=== PATIENT | male | born 1935 | race Caucasian/White ===

== ENCOUNTER 2017-08-22 14:46 | Inpatient (IN) | payer OTHER ==
[~2017-08-22] VITALS: Ht 175.3 cm; Wt 86.2 kg
[~2017-08-22 14:46] MED LIST: HUMALOG100 UNIT/2 SC
--- NOTE | 2017-08-22 14:58 | ED AMS/SEIZURE/WEAK/DIZZY ---
History of Present Illness General Chief Complaint: General Adult Stated Complaint: GENERAL WEAKNESS Source: patient Exam Limitations: no limitations Vital Signs & Intake/Output Vital Signs & Intake/Output Vital Signs Date Time Temp Pulse Resp B/P B/P Pulse O2 O2 Flow FiO2 Mean Ox Delivery Rate 08/22 1655 100.1 95 20 97/48 98 Nasal 3.0L Cannula 08/22 1602 100.1 08/22 1530 100.0 08/22 1454 Nasal 3.0L Cannula 08/22 1453 0.0 98 20 108/53 96 Nasal 3.0L Cannula Allergies Coded Allergies: morphine (UNKNOWN 11/02/16) Uncoded Allergies: Allergy Other BEES Food Allergies NKA Med Allergies MORPHINE/GI, PERCOCET/RASH Reconcile Medications Baclofen 10 MG TABLET 1 TAB PO TID PAIN (Reported) Fluticasone/Salmeterol (Advair 250-50 Diskus) 250 MCG-50 MCG/DOSE BLST.W.DEV 1 PUF INH BID BREATHING PROBLEMS (Reported) Gabapentin 600 MG TABLET 1 TAB PO BID NEUROPATHY (Reported) Gabapentin 600 MG TABLET 0.5 TAB PO 1200 NEUROPATHY (Reported) Insulin Lispro (Humalog) 100 UNIT/ML VIAL 2 UNITS SC TID DIABETES (Reported) Insulin-Lantus (Lantus) 100 UNIT/ML VIAL 34 UNITS SC DAILY DIABETES (Reported ) Metoprolol Succinate 25 MG TAB 0.5 TAB PO DAILY HEART (Reported) Ramipril 5 MG CAPSULE 1 CAP PO DAILY HEART (Reported) Umeclidinium [place] (Incruse Ellipta) 62.5 MCG/ACTUATION BLST.W.DEV 1 PUFF PO QPM BREATHING PROBLEMS (Reported) Triage Note: PT BIBA FROM HOME TODAY D/T GENERALIZED WEAKNESS. PER EMS PT USUALLY AMBULATES AT HOME WITH A WALKER BUT WAS UNABLE TO AMBULATE INDEPENDENTLY TODAY. PT REPORTS INTEMITTENT PRODUCTIVE COUGH X1 WEEK WITH YELLOW SUPTUM. HX OF COPD AND WEARS 3 L NC AT BASELINE. Triage Nurses Notes Reviewed? yes Onset: Abrupt Duration: day(s): (2), constant, continues in ED, getting worse Timing: single episode today Injury Environment: home Severity: moderate, severe No Modifying Factors: none Modifying Factors: Improves With: movement. Associated Symptoms: cough HPI: 81-year-old male past medical history of COPD, diabetes, hypertension presents for evaluation of cough, fever and weakness. Patient states she's had a cough that is gradually gotten worse over the past 4 days. The cough is productive of yellow sputum. He states that today he felt so weak he was unable to get off the couch. Normally he is able to walk with a walker without any difficulty but today he felt too weak. He states that he is on oxygen 3 L nasal cannula is been using his inhalers but is still been coughing a lot. He also reports he feels more short of breath than usual. No chest pain. He had a low-grade fever today. Has not taken any Tylenol. He is a former smoker. No nausea vomiting abdominal pain urinary symptoms rashes or any other associated symptoms. (Kaz Jerez) Past History Travel History Traveled to [place] past 21 day No Medical History Any Pertinent Medical History? see below for history Cardiovascular: hypertension Respiratory: COPD Endocrine: diabetes Surgical History Surgical History: non-contributory Psychosocial History What is your primary language Congolese Tobacco Use: Quit >30 days ago Family History Hx Contributory? No (Kaz Jerez) Review of Systems Review of Systems Constitutional: Reports: fever, malaise, weakness. EENTM: Reports: no symptoms. Respiratory: Reports: see HPI, cough, short of breath, sputum production. Cardiovascular: Reports: no symptoms. GI: Reports: no symptoms. Genitourinary: Reports: no symptoms. Musculoskeletal: Reports: no symptoms. Skin: Reports: no symptoms. Neurological/Psychological: Reports: weakness. Hematologic/Endocrine: Reports: no symptoms. Immunologic/Allergic: Reports: no symptoms. All Other Systems: Reviewed and Negative (Kaz Jerez) Physical Exam Physical Exam General Appearance: well developed/nourished, no apparent distress, alert, awake Head: atraumatic, normal appearance Eyes: Bilateral: normal appearance, PERRL, EOMI. Ears, Nose, Throat: normal pharynx, normal ENT inspection, hearing grossly normal Neck: normal inspection, supple, full range of motion Respiratory: chest non-tender, no respiratory distress, quiet respiration, decreased breath sounds, rhonchi Cardiovascular: regular rate/rhythm, normal peripheral pulses Peripheral Pulses: 2+ radial (R), 2+ radial (L) Gastrointestinal: normal bowel sounds, soft, non-tender, no organomegaly Back: normal inspection, normal range of motion, no vertebral tenderness Extremities: normal range of motion Neurologic/Psych: no motor/sensory deficits, awake, alert, oriented x 3 Skin: intact, normal color, warm/dry Lymphatic: no anterior cervical kirsten Core Measures ACS in differential dx? No CVA/TIA Diagnosis No Sepsis Present: No Sepsis Focused Exam Completed? No (Isaias BAER,Kaz) Progress Differential Diagnosis: anemia, dehydration, electrolyte imbalance, migraine GARDNER, pneumonia, sepsis, UTI/pyelo, COPD exacerbation, CHF exacerbation, PE Plan of Care: Orders Procedure Date/time Status Heart Healthy Diet 08/23 B Active Patient Data 08/22 1750 Active ED Holding Orders 08/22 174 Active Admit to inpatient 08/22 174 Active Vital Signs 08/22 174 Active Code Status 08/22 174 Active Add-on Test (ER Only) 08/22 1731 Active CULTURE,URINE 08/22 1630 Active BLOOD CULTURE 08/22 1525 Active URINALYSIS 08/22 145 Complete TSH REFLEX 08/22 145 Complete TROPONIN LEVEL 08/22 145 Complete MAGNESIUM 08/22 1456 Complete LACTIC ACID 08/22 1456 Complete COMPREHENSIVE METABOLIC PANEL 08/22 1456 Complete CBC WITHOUT DIFFERENTIAL 08/22 1456 Complete B-TYPE NATRIURETIC PEP (BNP) 08/22 1456 Complete EKG 08/22 1452 Active Laboratory Tests 08/22/17 1630: Urine Color YEL, Urine Clarity CLDY H, Urine pH 6.0, Ur Specific [place] 1.020, Urine Protein 100 H, Urine Ketones NEG, Urine Nitrite NEG, Urine Bilirubin NEG, Urine Urobilinogen 0.2, Ur Leukocyte Esterase LARGE H, Ur Microscopic SEDIMENT EXAMINED, Urine RBC 1-3, Urine WBC PACKD H, Urine Bacteria PACKD H, Urine Hemoglobin SMALL H, Urine Glucose 500 H 08/22/17 1503: Anion Gap 9, Estimated GFR > 60, BUN/Creatinine Ratio 22.7, Glucose 294 H, Lactic Acid 1.3, Calcium 8.7, Magnesium 1.8, Total Bilirubin 0.6, AST 26, ALT 23 , Alkaline Phosphatase 75, Troponin I 0.01, Tjl-P-Ezrxbfqjmru Pept 1250 H, Total Protein 6.5, Albumin 3.4 L, Globulin 3.1, Albumin/Globulin Ratio 1.1, TSH &T3 &Free T4 Intrp 2.930, CBC w Diff MAN DIFF ORDERED, RBC 3.54 L, MCV 88.5, MCH 30.5, MCHC 34.4, RDW 13.8, MPV 8.7, Gran % 91.0 H, Lymphocytes % 4.2 L, Monocytes % 3.8, Eosinophils % 0.6, Basophils % 0.4, Absolute Granulocytes 13.7 H, Segmented Neutrophils 88 H, Band Neutrophils 5, Absolute Lymphocytes 0.6 L, Lymphocytes 2 L, Monocytes 5, Absolute Monocytes 0.6, Absolute Eosinophils 0.1, Absolute Basophils 0.1, Platelet Estimate ADEQUATE, Hypochromic-Microcytic 2+, Anisocytosis 1+ Microbiology 08/22 1630 URINE ROUT: Urine Culture - RECD 08/22 1610 BLOOD: Blood Culture - RECD 08/22 1550 BLOOD: Blood Culture - RECD Patient seen and evaluated. He is here with weakness cough congestion shortness of breath and fever. He is currently unable to ambulate. He normally walks with a walker but is feeling so weak he is unable to. He has a low-grade temp in the emergency department. Patient was unable to ambulate when attempted by myself. IV Tylenol IV fluids ordered. Labs chest x-ray EKG. Blood work shows a white blood cell count of 15,000 with left shift. Troponin is negative. Chest x-ray suggests bibasilar opacities when combined with the clinical history and labs is suspicious for pneumonia. Patient was started on ceftriaxone and Zithromax cultures obtained. Urine is also showing some signs of infection. Urine culture added. Patient denies any dysuria abdominal pain or back pain. He does have urinary frequency but reports that this is not unusual for him due to his history of BPH. Patient will require admission for further evaluation and treatment. He will need IV antibiotics, gentle IV hydration, serial labs, serial chest x-rays, pulmonology, DuoNeb's, physical therapy, case management Diagnostic Imaging: Viewed by Me: Radiology Read. Discussed w/RAD: Radiology Read. Radiology Impression: PATIENT: HAYDEN IBRAHIM PRESENT AGE: 81 PATIENT ACCOUNT NO: [id number] : 35 LOCATION: [facility] ORDERING PHYSICIAN: Kaz BAER SERVICE DATE: 08/22/17-4345 EXAM TYPE: RAD - XRY-PORTABLE CHEST XRAY EXAMINATION: CHEST 1 VIEW CLINICAL INFORMATION: Weakness. CHF. COMPARISON: 11/02/2016. TECHNIQUE: An AP view of the chest is provided. FINDINGS: The cardiac silhouette is enlarged, though stable. There is streaky bibasilar opacification. There are neither pleural effusions nor pneumothoraces. The osseous structures are stable. IMPRESSION: Mild streaky nonspecific bibasilar opacification. DICTATED BY: Mulugeta Abreu MD DATE/TIME DICTATED:08/22/171524 SEAT COVERER:SHARI DATE/TIME TRANSCRIBED:1524 CONFIDENTIAL, DO NOT COPY WITHOUT APPROPRIATE AUTHORIZATION. < Electronically signed in Other Vendor System> Initial ED EKG: nonspecific T-wave changes in the lateral leads (Kaz Jerez) Departure Departure Disposition: STILL A PATIENT Condition: Stable Clinical Impression Primary Impression: Pneumonia Qualifiers: Pneumonia type: due to unspecified organism Laterality: bilateral Lung location: unspecified part of lung Qualified Code: J18.9 - Pneumonia, unspecified organism Referrals: Unknown Departure Forms: Customer Survey General Discharge Information Admission Note Spoke With: Emiliana Hoffman MD Documentation of Exam: Documentation of any treatments & extenuating circumstances including Concerns Regarding Discharge (functional status, medication knowledge or non-compliance, living conditions, etc.) that warrant an admission rather than observation: [V antibiotics, gentle IV hydration, serial labs, serial chest x-rays, pulmonology, DuoNeb's, physical therapy, case management] (Kaz Jerez) PA/SENIOR SOLUTIONS ENGINEER Co-Sign Statement Statement: ED Attending supervision documentation- [X] I saw and evaluated the patient. I have also reviewed all the pertinent lab results and diagnostic results. I agree with the findings and the plan of care as documented in the PA's/SENIOR SOLUTIONS ENGINEER's documentation. [X] I have reviewed the ED Record and agree with the PA's/SENIOR SOLUTIONS ENGINEER's documentation. [] Additions or exceptions (if any) to the PAs/SENIOR SOLUTIONS ENGINEER's note and plan are summarized below: [Patient to be admitted for COPD exacerbation, he is febrile with leukocytosis. He'll need IV antibiotics, IV steroids, nebulizers, pulmonary consultation] (Daniel SWIFT,Zurdo Mobley)
[2017-08-22 15:18] LABS: ABSOLUTE BASOPHIL COUNT 0.1 /CUMM (0.0-0.2); ABSOLUTE EOSINOPHIL COUNT 0.1 /CUMM (0.0-0.7); ABSOLUTE GRANULOCYTE CT 13.7 /CUMM (1.4-6.5); ABSOLUTE LYMPH COUNT 0.6 /CUMM (1.2-3.4); ABSOLUTE MONOCYTE COUNT 0.6 /CUMM (0.10-0.60); BASOPHIL % 0.4 % (0.0-2.0); EOSINOPHIL % 0.6 % (0-5); HEMATOCRIT 31.3 % (42-52); MEAN CORPUSCULAR HGB 30.5 PG (27.0-31.0); MEAN CORPUSCULAR HGB CONC 34.4 G/DL (33.0-37.0); MEAN CORPUSCULAR VOLUME 88.5 FL (80.0-94.0); MEAN PLATELET VOLUME 8.7 FL (7.4-10.4); PLATELET COUNT 323 /CUMM (130-400); RBC DISTRIBUTION WIDTH 13.8 % (11.5-14.5); RED BLOOD CELL CT 3.54 /CUMM (4.70-6.10); WHITE BLOOD CELL COUNT 15.1 /CUMM (4.8-10.8)
--- NOTE | 2017-08-22 15:32 | RADIOLOGY REPORT ---
EXAMINATION: CHEST 1 VIEW CLINICAL INFORMATION: Weakness. CHF. COMPARISON: 11/02/2016. TECHNIQUE: An AP view of the chest is provided. FINDINGS: The cardiac silhouette is enlarged, though stable. There is streaky bibasilar opacification. There are neither pleural effusions nor pneumothoraces. The osseous structures are stable. IMPRESSION: Mild streaky nonspecific bibasilar opacification.
[2017-08-22] MEDS ORDERED: ALTACE10 M2 PO (15:34)
[2017-08-22] MEDS ORDERED: LANTUS100 UNIT/1 SC (15:34)
[2017-08-22] MEDS ORDERED: METOPROLOL SUCC25 M1 PO (15:35)
[2017-08-22] MEDS ORDERED: BACLOFEN10 M1 PO (15:36)
[2017-08-22] MEDS ORDERED: ADVAIR 250-501 EACH INH (15:36)
[2017-08-22] MEDS ORDERED: GABAPENTIN600 M1 PO ×2 (15:36)
[2017-08-22] MEDS ORDERED: INCRUSE ELLI62.5 MCG PO (15:37)
--- NOTE | 2017-08-22 18:31 | History & Physical ---
Damion Ambriz 08/22/171826: General Information and HPI MD Statement: I have seen and personally examined HAYDEN HUSSEIN and documented this H&P. The patient is a 81 year old M who presented with a patient stated chief complaint of [weakness]. Source of Information: patient, family Exam Limitations: no limitations History of Present Illness: Mr. Alfred is a pleasant 81 year old male with a PMH of diabetes, complicated by neuropathy, HTN and COPD on 2.5L of home O2 who presents to the hospital with complaints of weakness. He notes that he fell back into his chair after getting up this morning, at which point his family decided he should come into the hospital. He is quite active at baseline in spite of his neuropathy. Additionally, he notes that over the last week he has had a productive cough for 1 week. He denies any fever, chills, n/v, diarrhea, constipation, pain. Overall, at the time of the interview he feels well. Vitals in the ER BP 108/53, HR 98, RR 20, Tmax 100.1, saturating 95% on 3 L. Labs as indicated below. His doctors are: Dr. Luis Enrique Correa Cardio Dr. Guzman Pulmonary Dr. Sesar Husain PCP/Endo Allergies/Medications Allergies: Coded Allergies: morphine (UNKNOWN 11/02/16) Uncoded Allergies: Allergy Other BEES Food Allergies NKA Med Allergies MORPHINE/GI, PERCOCET/RASH Home Med list Baclofen 10 MG TABLET 1 TAB PO TID PAIN (Reported) Fluticasone/Salmeterol (Advair 250-50 Diskus) 250 MCG-50 MCG/DOSE BLST.W.DEV 1 PUF INH BID BREATHING PROBLEMS (Reported) Gabapentin 600 MG TABLET 1 TAB PO 0800,1200 NEUROPATHY (Reported) Gabapentin 600 MG TABLET 0.5 TAB PO 2100 NEUROPATHY (Reported) Insulin Lispro (Humalog) 100 UNIT/ML VIAL 2 UNITS SC TID DIABETES (Reported) Insulin-Lantus (Lantus) 100 UNIT/ML VIAL 34 UNITS SC DAILY DIABETES (Reported ) Metoprolol Succinate 25 MG TAB 0.5 TAB PO DAILY HEART (Reported) Ramipril (Altace) 10 MG CAPSULE 1 CAP PO DAILY HTN (Reported) Umeclidinium [place] (Incruse Ellipta) 62.5 MCG/ACTUATION BLST.W.DEV 1 PUFF PO QPM BREATHING PROBLEMS (Reported) Compliance With Home Meds: GOOD Past History Travel History Traveled to [place] past 21 day No Medical History Cardiovascular: hypertension Respiratory: COPD Endocrine: diabetes Surgical History Surgical History: non-contributory Past Family/Social History Psychosocial History Where do you live? Home Who Do You Live With? spouse Services at Home: Home Health Aide Smoking Status: Former Smoker Functional Ability ADLs Independent: dressing, eating, toileting, bathing. Ambulation: independent Review of Systems Review of Systems Constitutional: Reports: see HPI. Exam & Diagnostic Data Last 24 Hrs of Vital Signs/I&O Vital Signs Date Time Temp Pulse Resp B/P B/P Pulse O2 O2 Flow FiO2 Mean Ox Delivery Rate 08/22 1655 100.1 95 20 97/48 98 Nasal 3.0L Cannula 08/22 1602 100.1 08/22 1530 100.0 08/22 1454 Nasal 3.0L Cannula 08/22 1453 0.0 98 20 108/53 96 Nasal 3.0L Cannula Intake & Output 08/22 1600 08/22 0800 08/22 0000 Intake Total 0 Output Total Balance 0 Intake, Oral 0 Patient 99.79 kg Weight Physical Exam General Appearance Alert, Oriented X3, Cooperative, No Acute Distress HEENT Atraumatic, EOMI Neck Supple, No JVD, No LAD Cardiovascular Regular Rate, Normal S1, Normal S2, No Murmurs, distant sounds. Lungs bilateral rhonchi at the bases noted. poor air entry Abdomen Normal Bowel Sounds, Soft, No Tenderness Extremities No Tenderness/Swelling, healed stage 1 ulcer on the right heel Sepsis Peripheral Pulse Location: Radial Sepsis Peripheral Pulse Exam: Normal Sepsis Cap Refill Exam: <2 Sec Last 24 Hrs of Labs/Willie: Laboratory Tests 08/22/17 1756: Lactic Acid Cancelled 08/22/17 1630: Urine Color YEL, Urine Clarity CLDY H, Urine pH 6.0, Ur Specific [place] 1.020, Urine Protein 100 H, Urine Ketones NEG, Urine Nitrite NEG, Urine Bilirubin NEG, Urine Urobilinogen 0.2, Ur Leukocyte Esterase LARGE H, Ur Microscopic SEDIMENT EXAMINED, Urine RBC 1-3, Urine WBC PACKD H, Urine Bacteria PACKD H, Urine Hemoglobin SMALL H, Urine Glucose 500 H 08/22/17 1503: Anion Gap 9, Estimated GFR > 60, BUN/Creatinine Ratio 22.7, Glucose 294 H, Lactic Acid 1.3, Calcium 8.7, Magnesium 1.8, Total Bilirubin 0.6, AST 26, ALT 23 , Alkaline Phosphatase 75, Troponin I 0.01, Nvu-E-Czquatmyixc Pept 1250 H, Total Protein 6.5, Albumin 3.4 L, Globulin 3.1, Albumin/Globulin Ratio 1.1, TSH &T3 &Free T4 Intrp 2.930, CBC w Diff MAN DIFF ORDERED, RBC 3.54 L, MCV 88.5, MCH 30.5, MCHC 34.4, RDW 13.8, MPV 8.7, Gran % 91.0 H, Lymphocytes % 4.2 L, Monocytes % 3.8, Eosinophils % 0.6, Basophils % 0.4, Absolute Granulocytes 13.7 H, Segmented Neutrophils 88 H, Band Neutrophils 5, Absolute Lymphocytes 0.6 L, Lymphocytes 2 L, Monocytes 5, Absolute Monocytes 0.6, Absolute Eosinophils 0.1, Absolute Basophils 0.1, Platelet Estimate ADEQUATE, Hypochromic-Microcytic 2+, Anisocytosis 1+ Microbiology 08/22 1630 URINE ROUT: Urine Culture - RECD 08/22 1610 BLOOD: Blood Culture - RECD 08/22 1550 BLOOD: Blood Culture - RECD Diagnostic Data EKG Results sinus tach with 1st AVB. P-mitrale noted. Poor r-wave progression. No significant ST-T changes CXR Results The cardiac silhouette is enlarged, though stable. There is streaky bibasilar opacification. There are neither pleural effusions nor pneumothoraces. The osseous structures are stable. IMPRESSION: Mild streaky nonspecific bibasilar opacification Assessment/Plan Assessment: Mr. Alfred is a pleasant 81 year old male with a PMH of diabetes, complicated by neuropathy, HTN and COPD on 2L of home O2 who presents to the hospital with complaints of productive cough x1 week and weakness. Productive cough and fatigue * In light of the patient's white count, chest x-ray findings and clinical picture, are concerning for CAP. * The patient received ceftriaxone and azithromycin in the emergency department. * His CURB 65 score is 2 (meets BUN and age criteria), putting him in the moderate risk group with a 30 day mortality risk of approximately 6.8%. * He also technically meets sepsis criteria (temperature greater than 100.4, heart rate greater than 90) with a suspected source]. * We will admit to inpatient for treatment of community-acquired pneumonia with intravenous antibiotics, ceftriaxone and azithromycin. Blood cultures have been drawn and sent. * LRCx with TRC/Nebs as well as Urinary strep and legionella Ag * We will also give Mucinex 600 mg twice daily for his productive cough. * O2 supplementation with a goal saturation greater than 92%, and Tylenol for fevers. * Additionally as he is febrile and his blood pressures are slightly soft, we will give him maintenance fluid of normal saline at 75 mL per hour Pyuria * The patient does have laboratory signs of a urinary tract infection with leukocyte esterase positive urine and packed white blood cells with bacteria. * He does not endorse any urinary symptoms, and I feel his clinical picture of fever and weakness is most likely secondary to pneumonia as opposed to a UTI * Either way, he will receive coverage for pneumonia which will also cover potential gram-negative urinary pathology such as Escherichia coli. Chronic medical problems including hypertension, diabetes with neuropathy * We will continue the patient's home medications as ordered. Hold antihypertensive medications tonight as his blood pressure is slightly soft. Full code Consistent carb 2 diet Pain pathway as ordered Lovenox for DVT prophylaxis As Ranked By This Provider Problem List: 1. Pneumonia Qualifiers Pneumonia type: due to unspecified organism Laterality: bilateral Lung location : unspecified part of lung Qualified Code: J18.9 - Pneumonia, unspecified organism Core Measures/Misc (12/09) Acute Coronary Syndrome ACS Diagnosis: No Congestive Heart Failure Congestive Heart Failure Diagnosis No Cerebrovascular Accident CVA/TIA Diagnosis: No VTE (View Protocol) VTE Risk Factors Acute Medical Illness No Mechanical VTE Prophylaxis d/t Early Ambulation No VTE Pharm Prophylaxis d/t NA PharmProphylax ordered Sepsis (View protocol) Sepsis Present: No If YES complete Sepsis Event Note If YES complete Sepsis Event Note Lalo Hatch MD 08/22/172036: Core Measures/Misc (12/09) Sepsis (View protocol) If YES complete Sepsis Event Note If YES complete Sepsis Event Note Attending MD Review Statement Attending Statement Attending MD Statement: examined this patient, discuss w/resident/PA/PHYSICAL EDUCATION SPECIALIST, agreed w/resident/PA/PHYSICAL EDUCATION SPECIALIST, reviewed EMR data (avail), discussed with nursing Attending Assessment/Plan: Mr. Hussein is a 81 y/o male with a history of COPD on 3 L of oxygen at home, insulin-dependent diabetes mellitus, hypertension, bladder cancer comes in with complaints of generalized weakness and difficulty ambulating. Denies any subjective fever chills at home, however found to be febrile low-grade in the ER , respiratory symptoms are not prominent. On examination blood pressure 108/53, heart rate of 98, respiratory to 20, temperature of 100.1 saturating 95% on 3 L of oxygen in no acute distress. Bilateral air entry decreased with occasional rales, no wheezing. Cardiovascular S1-S2 normal, no pedal edema. Chest X ray showed mild streaky nonspecific bibasilar opacification. Assessment 1. Leucocytosis with fever - DD includes Community acquired pneumonia vs UTI 2. Generalized weakness 3. Insulin dependent Diabetes Mellitus 4. Asymptomatic bacteriuria 5. COPD - stable 6. Hypertension - currently BP on the lower side Plan Admit to general medicine floor. Follow-up on urine and blood cultures. Continue with IV ceftriaxone 1 g daily and IV azithromycin. Obtain physical therapy evaluation Continue with home dose of insulin with carb controlled diet Q6 hrly Accuchecks for 1st 24 hours Continue with home inhalers Will hold home dose of Toprol XL and re-evaluate in AM DVT prophylaxis with Lovenox
[2017-08-22 22:13] VITALS: BP 110/48
[2017-08-23 06:13] VITALS: BP 122/57
--- NOTE | 2017-08-23 07:44 | PN- Housestaff ---
Arcadio SWIFT,Nehal 08/23/17 0744: Subjective Follow-up For: Dizziness Subjective: Patient was seen and examined. He continues to have cough with production of phlegm. He denies any coughing on eating. The patient states that at home he uses 2.5 L during sleep and 2.5-3 L on ambulation during the day. He denies any chest pain. Review of Systems Constitutional: Reports: no symptoms. Cardiovascular: Reports: no symptoms. Respiratory: Reports: cough, short of breath, sputum production. Gastrointestinal: Reports: no symptoms. Genitourinary: Reports: no symptoms. Musculoskeletal: Reports: no symptoms. Objective Last 24 Hrs of Vital Signs/I&O Vital Signs Date Time Temp Pulse Resp B/P B/P Pulse O2 O2 Flow FiO2 Mean Ox Delivery Rate 08/23 1442 98.7 79 20 100/48 96 Nasal 2.5L Cannula 08/23 0847 89 122/57 08/23 0845 89 122/57 08/23 0800 95 Nasal 2.5L Cannula 08/23 0613 98.3 89 20 122/57 95 06/ 0000 99 Nasal 2.5L Cannula 08/22 2213 98.2 81 18 110/48 99 Nasal 2.5L Cannula 08/22 1958 99 Non 2.5L ReBreather 08/22 1845 98.7 92 20 97/48 98 Nasal 2.0L Cannula 08/22 1655 100.1 95 20 97/48 98 Nasal 3.0L Cannula Intake & Output 08/23 1600 08/23 0800 06 0000 Intake Total 900 720 Output Total 550 275 100 Balance 350 445 -100 Intake, IV 250 600 Intake, Oral 650 120 Output, Urine 550 275 100 Patient 190 lb Weight Weight Reported by Patient Measurement Method Physical Exam General Appearance: Alert, Oriented X3, Cooperative, No Acute Distress Skin: No Rashes, No Breakdown, No Significant Lesion Neck: Supple, No JVD Cardiovascular: Regular Rate, Normal S1, Normal S2 Lungs: mild crackles Abdomen: Normal Bowel Sounds, Soft, No Tenderness Neurological: Normal Speech Current Medications: Current Medications Sig/Adolfo Start time Last Medication Dose Route Stop Time Status Admin Acetaminophen 325 MG Q6P PRN 08/22 2044 AC PO Acetaminophen 1,000 MG Q6P PRN 08/22 2044 AC IV 08/24 2043 Azithromycin 500 MG DAILY 08/23 899 AC 08/23 Sodium Chloride 250 ML IV 0846 Azithromycin 500 MG ONCE ONE 08/22 1600 DC 08/22 Sodium Chloride 250 ML IV 08/22 1659 1614 Baclofen 10 MG TID 08/22 2099 AC 08/23 PO 1324 Budesonide/ 2 PUF BID 08/22 2100 AC 08/23 Formoterol Fumarate INH 0849 Ceftriaxone Sodium 1,000 MG DAILY 08/23 09 AC 08/23 IV 0846 Enoxaparin Sodium 40 MG DAILY 08/22 183 AC 08/23 SC 0844 Gabapentin 600 MG 0800,1200 08/23 0800 AC 08/23 PO 1143 Gabapentin 300 MG 2100 08/22 2099 AC 08/22 PO 2238 Guaifenesin 600 MG Q12 08/22 2099 AC 08/23 PO 0845 Insulin Aspart 0 AT BEDTIME 08/23 2099 SC Insulin Aspart 0 TIDAC 08/23 08 AR SC Insulin Aspart 0 TIDAC 08/22 2146 AC 08/23 SC 1144 Insulin Detemir 34 UNITS DAILY 08/23 09 AR SC Insulin Detemir 34 UNITS DAILY 08/22 2200 AC 08/23 SC 0849 Lisinopril 10 MG DAILY 08/23 09 AC 08/23 PO 0845 Metoprolol Succinate 12.5 MG DAILY 08/23 09 AC 08/23 PO 0847 Patient Medication 1 ED ONE ONE 08/23 1545 AR Teaching ED 08/23 1546 Sodium Chloride 1,000 ML Q13H 08/22 1845 DC 08/22 IV 08/23 0744 2048 Sodium Chloride 1,000 ML BOLUS ONE 08/22 1530 DC 08/22 IV 08/22 1629 1530 Last 24 Hrs of Lab/Willie Results Last 24 Hrs of Labs/Mics: Laboratory Tests 08/23/17 0752: Anion Gap 9, Estimated GFR > 60, BUN/Creatinine Ratio 27.5 H, Hemoglobin A1c 8.5 H, CBC w Diff NO MAN DIFF REQ, RBC 3.23 L, MCV 89.1, MCH 30.6, MCHC 34.3, RDW 14.0, MPV 8.9, Gran % 77.0 H, Lymphocytes % 13.2 L, Monocytes % 7.3, Eosinophils % 2.2, Basophils % 0.3, Absolute Granulocytes 6.0, Absolute Lymphocytes 1.0 L, Absolute Monocytes 0.6, Absolute Eosinophils 0.2, Absolute Basophils 0 08/23/17 0010: Lactic Acid 1.4 08/22/17 1756: Lactic Acid Cancelled 08/22/17 1630: Urine Color YEL, Urine Clarity CLDY H, Urine pH 6.0, Ur Specific [place] 1.020, Urine Protein 100 H, Urine Ketones NEG, Urine Nitrite NEG, Urine Bilirubin NEG, Urine Urobilinogen 0.2, Ur Leukocyte Esterase LARGE H, Ur Microscopic SEDIMENT EXAMINED, Urine RBC 1-3, Urine WBC PACKD H, Urine Bacteria PACKD H, Urine Hemoglobin SMALL H, Urine Glucose 500 H Microbiology 08/23 2043 LOWER RESP: Respiratory Culture - CAN Cancelled: SPECIMEN NOT RECEIVED IN LABORATORY 08/23 2043 LOWER RESP: Gram Stain - CAN Cancelled: SPECIMEN NOT RECEIVED IN LABORATORY 08/22 1629 URINE ROUT: Legionella Antigen - COMP 08/22 1629 URINE ROUT: Streptococcus pneumoniae Antigen (M - COMP 08/22 1629 URINE ROUT: Urine Culture - RES Assessment/Plan Assessment: Mr. Alfred is a pleasant 81 year old male with a PMH of diabetes, complicated by neuropathy, HTN and COPD on 2.5 L of home oxygen at night and 2.5 -3 L oxygen during the day,who presents to the hospital with complaints of productive cough x1 week and weakness. Productive cough and fatigue * In light of the patient's white count, chest x-ray findings and clinical picture, are concerning for CAP. * The patient received ceftriaxone and azithromycin in the emergency department will continue these medications. WBC has decreased from 15.1-7.8 today. * His CURB 65 score is 2 (meets BUN and age criteria), putting him in the moderate risk group with a 30 day mortality risk of approximately 6.8%. * He also technically meets sepsis criteria (temperature greater than 100.4, heart rate greater than 90) with a suspected source]. * Follow up blood cultures * LRCx with TRC/Nebs as well as Urinary strep and legionella Ag are negative * Mucinex 600 mg twice daily for his productive cough. * O2 supplementation with a goal saturation greater than 92%, and Tylenol for fevers. * Additionally as he is febrile and his blood pressures are slightly soft, we will give him maintenance fluid of normal saline at 75 mL per hour Pyuria * The patient does have laboratory signs of a urinary tract infection with leukocyte esterase positive urine and packed white blood cells with bacteria. * He does not endorse any urinary symptoms, and I feel his clinical picture of fever and weakness is most likely secondary to pneumonia as opposed to a UTI * Either way, he will receive coverage for pneumonia which will also cover potential gram-negative urinary pathology such as Escherichia coli. Chronic medical problems including hypertension, diabetes with neuropathy * We will continue the patient's home medications as ordered. Hold antihypertensive medications tonight as his blood pressure is slightly soft. Full code Consistent carb 2 diet Pain pathway as ordered Lovenox for DVT prophylaxis Problem List: 1. Pneumonia Pain Ratin Pain Location: na Pain Goal: Remain pain free Pain Plan: na Tomorrow's Labs & Rationales: milena Hoffman MD,Emiliana 08/23/17 1437: Attending MD Review Statement Attending Statement Attending MD Statement: examined this patient, discuss w/resident/PA/NURSE CHARGE RN, agreed w/resident/PA/NURSE CHARGE RN, reviewed EMR data (avail), discussed with nursing, discussed with case mgmt, amended to note Attending Assessment/Plan: Patient seen and examined. No issues overnight reported by nursing staff. Remains afebrile and hemodynamically stable. Resting comfortably and not in any acute distress. Reports feeling better. Reports mild productive cough. Denies chest pain. On examination he has adequate entry bilaterally with no significant added sounds. No peripheral edema. Problems: 1. Community-acquired pneumonia 2. Insulin-dependent diabetes mellitus 3. COPD 4. Hypertension Plan: -Continue antibiotic therapy with azithromycin/Rocephin. -Follow-up sputum cultures. -Mobilize patient as tolerated. -Blood glucose levels are in the 300s. Continue his home insulin regimen with sliding scale coverage. If glucose levels to trending high consider increasing dose of his long-acting insulin. Check hemoglobin A1c level today and if his home dose of insulin is currently appropriate for the patient.
[2017-08-23 09:43] LABS: ABSOLUTE BASOPHIL COUNT 0 /CUMM (0.0-0.2); ABSOLUTE EOSINOPHIL COUNT 0.2 /CUMM (0.0-0.7); ABSOLUTE MONOCYTE COUNT 0.6 /CUMM (0.10-0.60); BASOPHIL % 0.3 % (0.0-2.0); EOSINOPHIL % 2.2 % (0-5); HEMATOCRIT 28.8 % (42-52); MEAN CORPUSCULAR HGB 30.6 PG (27.0-31.0); MEAN CORPUSCULAR HGB CONC 34.3 G/DL (33.0-37.0); MEAN CORPUSCULAR VOLUME 89.1 FL (80.0-94.0); MEAN PLATELET VOLUME 8.9 FL (7.4-10.4); PLATELET COUNT 249 /CUMM (130-400); RED BLOOD CELL CT 3.23 /CUMM (4.70-6.10); WHITE BLOOD CELL COUNT 7.8 /CUMM (4.8-10.8)
[2017-08-23] MEDS ORDERED: CEFUROXIME500 MG PO (14:00)
[2017-08-23] MEDS ORDERED: AZITHROMYCIN500 M3 PO (14:00)
--- NOTE | 2017-08-23 14:03 | Patient Discharge Instructions ---
Discharge Instructions General Discharge Information You were seen/treated for: pneumonia Special Instructions: Your dose of insulin has changed. Please start taking 20 units twice daily. Follow up with your doctor who manages your diabetes after discharge. Continue all your previous medications as directed. Diet Continue normal diet: Yes Activity Full Activity/No Limits: Yes Acute Coronary Syndrome Inclusion Criteria At DC or during hospital stay patient has or had the following: ACS DIAGNOSIS No Discharge Core Measures Meds if any: Prescribed or Continued at Discharge Meds if any: NOT Prescribed or Continued at Discharge Congestive Heart Failure Inclusion Criteria At DC or during hospital stay patient has or had the following: CHF DIAGNOSIS No Discharge Core Measures Meds if any: Prescribed or Continued at Discharge Meds if any: NOT Prescribed or Continued at Discharge Cerebrovascular accident Inclusion Criteria At DC or during hospital stay patient has or had the following: CVA/TIA Diagnosis No Discharge Core Measures Meds if any: Prescribed or Continued at Discharge Meds if any: NOT Prescribed or Continued at Discharge Venous thromboembolism Inclusion Criteria VTE Diagnosis No VTE Type NONE VTE Confirmed by (Test) NONE Discharge Core Measures - Per Current guidelines, there needs to be overlap - treatment for the first 5 days of Warfarin therapy. - If discharged on Warfarin prior to 5 days of - overlap therapy, the patient will need to be - assessed for post discharge needs including - *Post discharge parental anticoagulation - *Warfarin and/or parental anticoagulation education - *Follow up date to check INR post discharge At least 5 days overlap therapy as Inpatient No Meds if any: Prescribed or Continued at Discharge Note: Overlap Therapy is Warfarin and Anticoagulant Meds if any: NOT Prescribed or Continued at Discharge
--- NOTE | 2017-08-23 14:25 | PN- Student ---
Subjective Subjective: Patient is a pleasant 81 year old male with a PMHx of DM complicated by neuropathy, COPD, HTN, BPH, and bladder cancer. The bladder cancer is currently under control, with removal of neoplasms occuring once per year, most recently in Jan or Feb 2017. He presented to the ED yesterday because he could stand from the seated position, even with the help of his and granddaugter. He was able to move from his bed to the couch in the morning without difficulty. Previous to one day ago, he moved about the house freely with the aid of a walker or cane. The patient reported having a cough productive of yellow/white mucous for the past 6 days, with no associated pain. The patient reports taking liquid nectar for as long as he can remember, maybe about 20 years. His daughter and son-in-law have been very helpful, accurate historians. The daughter is concerned that his skin appears very "thin" and said he always has "blood spots on his arms". This morning the patient reported that he slept well overnight and didn't cough overnight, but he said he's nervous about not being able to do today's physical therapy. Patient's son-in-law Lucio made note that last time the patient was treated for pneumonia, he remained in rehabilition for 7 weeks and believes that his slow recovery was due to difficulty managing blood glucose levels. He is concerned that because there isn't sugar free liquid nectar juice in the hospital, that this may be affecting his sugar levels and thus would like us to DC use. The patient has his own thickener that he can add to water. Objective Objective: Vital Signs Date Time Temp Pulse Resp B/P B/P Pulse O2 O2 Flow FiO2 Mean Ox Delivery Rate 08/23 0847 89 122/57 08/23 0845 89 122/57 08/23 0800 95 Nasal 2.5L Cannula 08/23 0613 98.3 89 20 122/57 95 08/23 0000 99 Nasal 2.5L Cannula 08/22 2212 98.2 81 18 110/48 99 Nasal 2.5L Cannula 08/22 1957 99 Non 2.5L ReBreather 08/22 1845 98.7 92 20 97/48 98 Nasal 2.0L Cannula 08/22 1655 100.1 95 20 97/48 98 Nasal 3.0L Cannula 08/22 1602 100.1 05/31 1530 100.0 08/22 1454 Nasal 3.0L Cannula 08/22 1453 0.0 98 20 108/53 96 Nasal 3.0L Cannula Physical Exam: General: well-appearing, alert and pleasant Skin: skin appears thin with multiple ecchymoses on arms bilaterally, healing stage 1 ulcer on bottom of R heel HEENT: nomocephalic, atraumatic, PERRLA, gross hearing intact, normal pink mucosa, no teeth present, symmetric elevation of palate, tongue midline Neck: supple, no lymphadenopathy Cardiac: quiet S1, S2, no MRG appreciated Pulmonary: thorax symmetric, no use of accessory muscles, no tenderness on palpation, bibasilar rales MSK: no edema Neuro: AO x 3, 5/5 strength in hip flexion bilaterally Intake & Output 08/23 1600 08/23 0800 08/23 0000 Intake Total 720 Output Total 275 100 Balance 445 -100 Intake, IV 600 Intake, Oral 120 Output, Urine 275 100 Patient 190 lb Weight Weight Reported by Patient Measurement Method Laboratory Tests 08/23 08/23 08/22 0752 0010 1756 Chemistry Sodium (137 - 145 mmol/L) 141 Potassium (3.5 - 5.1 mmol/L) 4.4 Chloride (98 - 107 mmol/L) 101 Carbon Dioxide (22 - 30 mmol/L) 30 Anion Gap (5 - 16) 9 BUN (9 - 20 mg/dL) 22 H Creatinine (0.7 - 1.2 mg/dL) 0.8 Estimated GFR (>60 ml/min) > 60 BUN/Creatinine Ratio (7 - 25 %) 27.5 H Lactic Acid (0.7 - 2.1 mmol/L) 1.4 Cancelled Hematology CBC w Diff NO MAN DIFF REQ WBC (4.8 - 10.8 /CUMM) 7.8 RBC (4.70 - 6.10 /CUMM) 3.23 L Hgb (14.0 - 18.0 G/DL) 9.9 L Hct (42 - 52 %) 28.8 L MCV (80.0 - 94.0 FL) 89.1 MCH (27.0 - 31.0 PG) 30.6 MCHC (33.0 - 37.0 G/DL) 34.3 RDW (11.5 - 14.5 %) 14.0 Plt Count (130 - 400 /CUMM) 249 MPV (7.4 - 10.4 FL) 8.9 Gran % (42.2 - 75.2 %) 77.0 H Lymphocytes % (20.5 - 51.1 %) 13.2 L Monocytes % (1.7 - 9.3 %) 7.3 Eosinophils % (0 - 5 %) 2.2 Basophils % (0.0 - 2.0 %) 0.3 Absolute Granulocytes (1.4 - 6.5 /CUMM) 6.0 Absolute Lymphocytes (1.2 - 3.4 /CUMM) 1.0 L Absolute Monocytes (0.10 - 0.60 /CUMM) 0.6 Absolute Eosinophils (0.0 - 0.7 /CUMM) 0.2 Absolute Basophils (0.0 - 0.2 /CUMM) 0 08/22 1630 Urines Urine Color (YEL,AMB,STR) YEL Urine Clarity (CLEAR) CLDY H Urine pH (5.0 - 8.0) 6.0 Ur Specific [place] (1.001 - 1.035) 1.020 Urine Protein (NEG,<30 MG/DL) 100 H Urine Ketones (NEG) NEG Urine Nitrite (NEG) NEG Urine Bilirubin (NEG) NEG Urine Urobilinogen (0.1 - 1.0 EU/dl) 0.2 Ur Leukocyte Esterase (NEG) LARGE H Ur Microscopic SEDIMENT EXAMINED Urine RBC (0 - 5 /HPF) 1-3 Urine WBC (0 - 2 /HPF) PACKD H Urine Bacteria (NEG/NONE) PACKD H Urine Hemoglobin (NEG) SMALL H Urine Glucose (N MG/DL) 500 H 08/22 1503 Chemistry Sodium (137 - 145 mmol/L) 138 Potassium (3.5 - 5.1 mmol/L) 4.6 Chloride (98 - 107 mmol/L) 97 L Carbon Dioxide (22 - 30 mmol/L) 32 H Anion Gap (5 - 16) 9 BUN (9 - 20 mg/dL) 25 H Creatinine (0.7 - 1.2 mg/dL) 1.1 Estimated GFR (>60 ml/min) > 60 BUN/Creatinine Ratio (7 - 25 %) 22.7 Glucose (65 - 99 mg/dL) 294 H Lactic Acid (0.7 - 2.1 mmol/L) 1.3 Calcium (8.4 - 10.2 mg/dL) 8.7 Magnesium (1.6 - 2.3 mg/dL) 1.8 Total Bilirubin (0.2 - 1.3 mg/dL) 0.6 AST (17 - 59 U/L) 26 ALT (21 - 72 U/L) 23 Alkaline Phosphatase (< 127 U/L) 75 Troponin I (<0.11 ng/ml) 0.01 Ozg-W-Ogzstccowuh Pept (<125 pg/mL) 1250 H Total Protein (6.3 - 8.2 g/dL) 6.5 Albumin (3.5 - 5.0 g/dL) 3.4 L Globulin (1.9 - 4.2 gm/dL) 3.1 Albumin/Globulin Ratio (1.1 - 2.2 %) 1.1 TSH &T3 &Free T4 Intrp (0.27 - 4.20 uIU/mL) 2.930 Hematology CBC w Diff MAN DIFF ORDERED WBC (4.8 - 10.8 /CUMM) 15.1 H RBC (4.70 - 6.10 /CUMM) 3.54 L Hgb (14.0 - 18.0 G/DL) 10.8 L Hct (42 - 52 %) 31.3 L MCV (80.0 - 94.0 FL) 88.5 MCH (27.0 - 31.0 PG) 30.5 MCHC (33.0 - 37.0 G/DL) 34.4 RDW (11.5 - 14.5 %) 13.8 Plt Count (130 - 400 /CUMM) 323 MPV (7.4 - 10.4 FL) 8.7 Gran % (42.2 - 75.2 %) 91.0 H Lymphocytes % (20.5 - 51.1 %) 4.2 L Monocytes % (1.7 - 9.3 %) 3.8 Eosinophils % (0 - 5 %) 0.6 Basophils % (0.0 - 2.0 %) 0.4 Absolute Granulocytes (1.4 - 6.5 /CUMM) 13.7 H Segmented Neutrophils (42.2 - 75.2 %) 88 H Band Neutrophils (0.0 - 5.0 %) 5 Absolute Lymphocytes (1.2 - 3.4 /CUMM) 0.6 L Lymphocytes (20.5 - 51.1 %) 2 L Monocytes (1.7 - 9.3 %) 5 Absolute Monocytes (0.10 - 0.60 /CUMM) 0.6 Absolute Eosinophils (0.0 - 0.7 /CUMM) 0.1 Absolute Basophils (0.0 - 0.2 /CUMM) 0.1 Platelet Estimate (ADEQUATE) ADEQUATE Hypochromic-Microcytic 2+ Anisocytosis 1+ CXR: streaky, bibasilar opacification Current Medications Sig/Adolfo Start time Last Medication Dose Route Stop Time Status Admin Acetaminophen 325 MG Q6P PRN 08/22 2044 AC PO Acetaminophen 1,000 MG Q6P PRN 08/22 2044 AC IV 08/23 204 Acetaminophen 0 .STK-MED ONE 08/22 1533 DC IV Acetaminophen 1,000 MG ONCE ONE 08/22 1530 DC 08/22 N/A 1 UNIT IV 08/22 1544 1530 Azithromycin 500 MG DAILY 08/23 09 AC 08/23 Sodium Chloride 250 ML IV 0846 Azithromycin 500 MG ONCE ONE 08/22 1600 DC 08/22 Sodium Chloride 250 ML IV 08/22 1659 1614 Baclofen 10 MG TID 08/22 2100 AC 08/23 PO 1324 Budesonide/ 2 PUF BID 08/22 2100 AC 08/23 Formoterol Fumarate INH 0849 Ceftriaxone Sodium 1,000 MG DAILY 08/23 09 AC 08/23 IV 0846 Ceftriaxone Sodium 0 .STK-MED ONE 08/22 1601 DC .ROUTE Ceftriaxone Sodium 1,000 MG ONCE ONE 08/22 1600 DC 08/22 IV 08/22 1601 1614 Enoxaparin Sodium 40 MG DAILY 08/22 1838 AC 08/23 SC 0844 Gabapentin 600 MG 0800,1200 08/23 0800 AC 08/23 PO 1143 Gabapentin 300 MG 08/22 AC 08/22 PO 2238 Guaifenesin 600 MG Q12 08/22 2099 AC 08/23 PO 0845 Insulin Aspart 0 AT BEDTIME 08/23 2099 AC SC Insulin Aspart 0 TIDAC 08/23 08 DC SC Insulin Aspart 0 TIDAC 08/22 2146 AC 08/23 SC 1144 Insulin Detemir 34 UNITS DAILY 08/23 09 DC SC Insulin Detemir 34 UNITS DAILY 08/22 220 AC 08/23 SC 0849 Lisinopril 10 MG DAILY 08/23 0900 AC 08/23 PO 0845 Metoprolol Succinate 12.5 MG DAILY 08/23 0900 AC 08/23 PO 0847 Sodium Chloride 1,000 ML Q13H 08/22 1845 DC 08/22 IV 08/23 0744 2048 Sodium Chloride 1,000 ML BOLUS ONE 08/22 1530 DC 08/22 IV 08/22 1629 1530 Results Results: Laboratory Tests 08/23/17 0752: Anion Gap 9, Estimated GFR > 60, BUN/Creatinine Ratio 27.5 H, CBC w Diff NO MAN DIFF REQ, RBC 3.23 L, MCV 89.1, MCH 30.6, MCHC 34.3, RDW 14.0, MPV 8.9, Gran % 77.0 H, Lymphocytes % 13.2 L, Monocytes % 7.3, Eosinophils % 2.2, Basophils % 0.3, Absolute Granulocytes 6.0, Absolute Lymphocytes 1.0 L, Absolute Monocytes 0.6, Absolute Eosinophils 0.2, Absolute Basophils 0 08/23/17 0010: Lactic Acid 1.4 08/22/17 1756: Lactic Acid Cancelled 08/22/17 1630: Urine Color YEL, Urine Clarity CLDY H, Urine pH 6.0, Ur Specific [place] 1.020, Urine Protein 100 H, Urine Ketones NEG, Urine Nitrite NEG, Urine Bilirubin NEG, Urine Urobilinogen 0.2, Ur Leukocyte Esterase LARGE H, Ur Microscopic SEDIMENT EXAMINED, Urine RBC 1-3, Urine WBC PACKD H, Urine Bacteria PACKD H, Urine Hemoglobin SMALL H, Urine Glucose 500 H 08/22/17 1503: Anion Gap 9, Estimated GFR > 60, BUN/Creatinine Ratio 22.7, Glucose 294 H, Lactic Acid 1.3, Calcium 8.7, Magnesium 1.8, Total Bilirubin 0.6, AST 26, ALT 23 , Alkaline Phosphatase 75, Troponin I 0.01, Nxu-I-Ywtziyjdawl Pept 1250 H, Total Protein 6.5, Albumin 3.4 L, Globulin 3.1, Albumin/Globulin Ratio 1.1, TSH &T3 &Free T4 Intrp 2.930, CBC w Diff MAN DIFF ORDERED, RBC 3.54 L, MCV 88.5, MCH 30.5, MCHC 34.4, RDW 13.8, MPV 8.7, Gran % 91.0 H, Lymphocytes % 4.2 L, Monocytes % 3.8, Eosinophils % 0.6, Basophils % 0.4, Absolute Granulocytes 13.7 H, Segmented Neutrophils 88 H, Band Neutrophils 5, Absolute Lymphocytes 0.6 L, Lymphocytes 2 L, Monocytes 5, Absolute Monocytes 0.6, Absolute Eosinophils 0.1, Absolute Basophils 0.1, Platelet Estimate ADEQUATE, Hypochromic-Microcytic 2+, Anisocytosis 1+ Microbiology 08/23 2043 LOWER RESP: Respiratory Culture - COLB 08/23 2043 LOWER RESP: Gram Stain - COLB 08/22 2036 URINE ROUT: Legionella Antigen - COLB 08/22 2036 URINE ROUT: Streptococcus pneumoniae Antigen (M - COLB 08/22 163 URINE ROUT: Urine Culture - RES 08/22 161 BLOOD: Blood Culture - RES 08/22 1550 BLOOD: Blood Culture - RES Assessment/Plan Assessment: Patient is 81 year old male with PMHx of diabetic neuropathy and COPD with 6 days of productive cough and elevated WBC count and bibasilar opacifications on CXR supporting the diagnosis of pneumonia, though it could be a COPD exacerbation. Patient's UA showed pyuria, bacteria, and glucose in the urine, suggestive of a UTI. Plan: Patient is currently receiving 1,000mg ceftriaxone and 500mg azythromycin daily for empiric treatment of pneuomia, which should also treat the UTI. We are awaiting blood and sputum cultures to make sure we are treating appropriately. The patient's last blood glucose measurement was yesterday, measuring 294 so I recommend that we obtain another measurement today to see if his levels are appropriate.
[2017-08-23 14:42] VITALS: BP 100/48
[2017-08-23 22:00] VITALS: BP 126/56
--- NOTE | 2017-08-24 08:12 | PN- Housestaff ---
Antonio SWIFT,Robyn 08/24/17 0811: Subjective Follow-up For: CAP Subjective: Seen and examined. feels improvement in symptoms. However he does not want to be discharged from Review of Systems Constitutional: Reports: see HPI. Objective Last 24 Hrs of Vital Signs/I&O Vital Signs Date Time Temp Pulse Resp B/P B/P Pulse O2 O2 Flow FiO2 Mean Ox Delivery Rate 08/24 1836 Nasal 2.5L Cannula 08/24 1600 Nasal 2.5L Cannula 08/24 1544 98.9 89 20 124/52 97 Room Air 08/24 0819 88 126/56 08/24 0818 88 126/56 08/24 0000 Nasal 2.5L Cannula 08/23 2200 98.9 88 20 126/56 98 Nasal 2.5L Cannula Intake & Output 08/24 1600 08/24 0800 08/24 0000 Intake Total 2100 480 Output Total 300 350 100 Balance 1800 130 -100 Intake, IV 300 0 Intake, Oral 1800 480 Number 0 1 Bowel Movements Output, Urine 300 350 100 Physical Exam General Appearance: Alert, Oriented X3 Cardiovascular: Normal S1, Normal S2 Lungs: mild crackels Abdomen: Soft, No Tenderness Current Medications: Current Medications Sig/Adolfo Start time Last Medication Dose Route Stop Time Status Admin Acetaminophen 325 MG Q6P PRN 08/22 2044 AC PO Acetaminophen 1,000 MG Q6P PRN 08/22 2044 DC IV 08/23 204 Albuterol Sulfate 3 ML Q4P PRN 08/24 184 AC INH Azithromycin 500 MG DAILY 08/23 899 AC 08/24 Sodium Chloride 250 ML IV 0820 Baclofen 10 MG TID 08/22 2099 AC 08/24 PO 1223 Budesonide/ 2 PUF BID 08/22 2099 AC 08/24 Formoterol Fumarate INH 0820 Ceftriaxone Sodium 1,000 MG DAILY 08/23 09 AC 08/24 IV 0818 Enoxaparin Sodium 40 MG DAILY 08/22 183 AC 08/24 SC 0819 Gabapentin 600 MG 0800,1200 08/23 08 AC 08/24 PO 122 Gabapentin 300 MG 08/22 AC 08/23 PO 2051 Guaifenesin 600 MG Q12 08/22 2099 AC 08/24 PO 0818 Insulin Aspart 0 AT BEDTIME 08/23 2099 AC 08/23 SC 2051 Insulin Aspart 0 TIDAC 08/22 2145 08/24 SC 1702 Insulin Detemir 34 UNITS DAILY 08/22 2200 08/24 SC 0818 Lisinopril 10 MG DAILY 08/23 0900 AC 08/24 PO 0818 Metoprolol Succinate 12.5 MG DAILY 08/23 0900 08/24 PO 0819 Assessment/Plan Assessment: Mr. Alfred is a pleasant 81 year old male with a PMH of diabetes, complicated by neuropathy, HTN and COPD on 2.5 L of home oxygen at night and 2.5 -3 L oxygen during the day,who presents to the hospital with complaints of productive cough x1 week and weakness. Productive cough and fatigue In light of the patient's white count, chest x-ray findings and clinical picture, are concerning for CAP -Ceftriaxone and azithromycin -TRC nebs -Mucinex -Oxygen supplementation Pyuria no urinary symptoms likely symptomatic bacteriuria white count is coming from the [facility] community-acquired pneumonia Chronic medical problems including hypertension, diabetes with neuropathy * We will continue the patient's home medications as ordered. Hold antihypertensive medications tonight as his blood pressure is slightly soft. Full code Consistent carb 2 diet Pain pathway as ordered Lovenox for DVT prophylaxis Problem List: 1. Pneumonia Pain Ratin Pain Location: n/a Pain Goal: Pain 4 or less Pain Plan: prn Tomorrow's Labs & Rationales: none Mario Brady MD 08/24/17 1003: Attending MD Review Statement Attending Statement Attending Statement: examined this patient, discuss w/resident/PA/OPERATIONS WELDER, agreed w/resident/PA/OPERATIONS WELDER, discussed with family, reviewed EMR data (avail), discussed with nursing, discussed with case mgmt, reviewed images, amended to note Attending Assessment/Plan: Mario Siddiqi M.D. have examined this patient, reviewed available EMR data, personally reviewed images, discussed with resident/PA/OPERATIONS WELDER, discussed management plan with housestaff and nursing staff, discussed managment plan all of healthcare providers, discussed management plan with patient and/or family, agreed with resident/PA/OPERATIONS WELDER. The past history and parts of the chart have been autopopulated. Impression 81 year old man * CAP * DM - insulin dependent * COPD at baseline * HTN Plan -currently on ceftriaxone and zithromax -TRC evaluation -monitor glucose -upon dc to f/u with Dr. Guzman (primary bearing ring assembler) DVT prophylaxis at all times
[2017-08-24 15:44] VITALS: BP 124/52
[2017-08-24 21:39] VITALS: BP 120/50
[2017-08-25 06:55] VITALS: BP 136/52
--- NOTE | 2017-08-25 08:41 | PN- Housestaff ---
Antonio SWIFT,Robyn 08/25/17 0841: Subjective Follow-up For: Community-acquired pneumonia Subjective: The patient has been seen and examined resting comfortably. He reports improvement in respiratory symptoms. Denies fevers chills nausea vomiting diarrhea Review of Systems Constitutional: Reports: see HPI. Objective Last 24 Hrs of Vital Signs/I&O Vital Signs Date Time Temp Pulse Resp B/P B/P Pulse O2 O2 Flow FiO2 Mean Ox Delivery Rate 08/25 0835 136/52 08/25 0835 136/52 08/25 0800 Nasal 2.5L Cannula 08/25 0655 98.5 74 20 136/52 97 / 0000 Nasal 2.5L Cannula 08/24 2139 98.5 77 19 120/50 96 Nasal 2.5L Cannula 08/24 1836 Nasal 2.5L Cannula 08/24 1600 Nasal 2.5L Cannula 08/24 1544 98.9 89 20 124/52 97 Room Air Intake & Output 08/25 1600 08/25 0800 08/25 0000 Intake Total 490 Output Total 550 400 Balance -60 -400 Intake, IV 10 Intake, Oral 480 Number 0 Bowel Movements Output, Urine 550 400 Patient 190 lb Weight Physical Exam General Appearance: Alert, Oriented X3, Cooperative Cardiovascular: Normal S1, Normal S2 Lungs: Clear to Auscultation Abdomen: Normal Bowel Sounds Neurological: Normal Speech Current Medications: Current Medications Sig/Adolfo Start time Last Medication Dose Route Stop Time Status Admin Acetaminophen 325 MG Q6P PRN 08/22 204 AC PO Albuterol Sulfate 3 ML Q4P PRN 08/24 1845 AC INH Azithromycin 500 MG DAILY 08/23 899 AC 08/25 Sodium Chloride 250 ML IV 0834 Baclofen 10 MG TID 08/22 2099 AC 08/25 PO 0834 Budesonide/ 2 PUF BID 08/22 2099 AC 08/25 Formoterol Fumarate INH 0835 Ceftriaxone Sodium 1,000 MG DAILY 08/23 899 AC 08/25 IV 0834 Enoxaparin Sodium 40 MG DAILY 08/22 183 AC 08/25 SC 0834 Gabapentin 600 MG 0800,1200 08/23 08 AC 08/25 PO 0834 Gabapentin 300 MG 08/22 AC 08/24 PO 2210 Guaifenesin 600 MG Q12 08/22 2099 AC 08/25 PO 0834 Insulin Aspart 0 AT BEDTIME 08/23 2099 AC 08/23 SC 2052 Insulin Aspart 0 TIDAC 08/22 2146 AC 08/24 TN 1702 Insulin Detemir 34 UNITS DAILY 08/22 2200 AC 08/25 SC 0849 Lisinopril 10 MG DAILY 08/23 0900 AC 08/25 PO 0835 Metoprolol Succinate 12.5 MG DAILY 08/23 0900 AC 08/25 PO 0835 Assessment/Plan Assessment: Mr. Alfred is a pleasant 81 year old male with a PMH of diabetes, complicated by neuropathy, HTN and COPD on 2.5 L of home oxygen at night and 2.5 -3 L oxygen during the day,who presents to the hospital with complaints of productive cough x1 week and weakness. #Productive cough and fatigue In light of the patient's white count, chest x-ray findings and clinical picture, are concerning for CAP -Ceftriaxone and azithromycin -TRC nebs -Mucinex -Oxygen supplementation -He will complete 5 days of antibiotic therapy tomorrow and can be discharged home with follow-up with his pediatric geneticist. -No wheezing does not appear to be in COPD exacerbation. We'll hold off steroids #Near Fall and deconditioning -Patient needs to be evaluated by PT for safe discharge planning. Patient has not been walked by nurse's and is being deemed a fall risk. #Pyuria no urinary symptoms likely asymptomatic bacteriuria white count is coming from the community-acquired pneumonia #Chronic medical problems including hypertension, diabetes with neuropathy We will continue the patient's home medications as ordered. Hold antihypertensive medications tonight as his blood pressure is slightly soft. Full code/Consistent carb 2 diet Problem List: 1. Pneumonia Pain Ratin Pain Location: none Pain Goal: Pain 4 or less Pain Plan: prn Tomorrow's Labs & Rationales: none Mario Brady MD 08/25/17 0953: Attending MD Review Statement Attending Statement Attending MD Statement: examined this patient, discuss w/resident/PA/MARIONETTE PERFORMER, agreed w/resident/PA/MARIONETTE PERFORMER, discussed with family, reviewed EMR data (avail), discussed with nursing, discussed with case mgmt, reviewed images, amended to note Attending Assessment/Plan: Mario Siddiqi M.D. have examined this patient, reviewed available EMR data, personally reviewed images, discussed with resident/PA/MARIONETTE PERFORMER, discussed management plan with housestaff and nursing staff, discussed managment plan all of healthcare providers, discussed management plan with patient and/or family, agreed with resident/PA/MARIONETTE PERFORMER. The past history and parts of the chart have been autopopulated. Impression 81 year old man * CAP * DM - insulin dependent * COPD at baseline * HTN Plan -currently on ceftriaxone and zithromax - continue -obtain sputum culture if feasible -TRC -feelng better, no need for steroids at this time -monitor glucose -upon dc to f/u with Dr. Guzman (primary pediatric geneticist) DVT prophylaxis at all times
[2017-08-25 14:58] VITALS: BP 114/48
[2017-08-25 22:00] VITALS: BP 129/50
[2017-08-26 06:21] VITALS: BP 132/48
--- NOTE | 2017-08-26 07:27 | PN- Housestaff ---
Arcadio SWIFT,Nehal 08/26/17 0727: Subjective Follow-up For: CAP Subjective: patient notes that his breathing is better. does not complain of cough. he notes that he has not gotten up at all since 4 days ago, before he was in the hospital. the back of his heels hurt from laying in bed too long. patient had high blood sugar over 400 overnight. Review of Systems Constitutional: Reports: weakness. EENTM: Reports: no symptoms. Cardiovascular: Reports: no symptoms. Respiratory: Reports: no symptoms. Gastrointestinal: Reports: no symptoms. Genitourinary: Reports: no symptoms. Musculoskeletal: Reports: no symptoms. Skin: Reports: no symptoms. Neurological/Psychological: Reports: no symptoms. Objective Last 24 Hrs of Vital Signs/I&O Vital Signs Date Time Temp Pulse Resp B/P B/P Pulse O2 O2 Flow FiO2 Mean Ox Delivery Rate 08/26 1730 98.8 76 20 132/54 08/26 1600 9 Nasal 2.5L Cannula 08/26 1444 98.8 76 20 94 Nasal 3.0L Cannula 08/26 1321 95 Nasal 2.5L Cannula 08/26 1126 Nasal 2.5L Cannula 08/26 0915 72 132/54 /04 0914 72 132/54 08/26 0800 94 Nasal 2.5L Cannula 08/26 0621 98.5 76 20 132/48 97 08/26 0000 94 Nasal 2.5L Cannula 08/25 2200 98.1 78 20 129/50 96 Nasal 2.5L Cannula Intake & Output 08/26 1600 /04 0800 08/26 0000 Intake Total 720 120 Output Total 550 150 400 Balance 170 -30 -400 Intake, Oral 720 120 Output, Urine 550 150 400 Physical Exam General Appearance: Alert, Oriented X3, Cooperative, No Acute Distress Skin: No Rashes, No Breakdown, No Significant Lesion Skin Temp/Moisture Exam: Warm/Dry Cardiovascular: Regular Rate, Normal S1, Normal S2, No Murmurs Lungs: Clear to Auscultation Abdomen: Normal Bowel Sounds, Soft, No Tenderness, No Hepatospenomegaly Neurological: Normal Speech Extremities: No Clubbing, No Cyanosis, No Edema Vascular: Normal Pulses, Pulses Symmetrical Current Medications: Current Medications Sig/Adolfo Start time Last Medication Dose Route Stop Time Status Admin Acetaminophen 325 MG Q6P PRN 05/31 2045 DCD PO Albuterol Sulfate 3 ML Q4P PRN 08/24 1845 DCD INH Azithromycin 500 MG DAILY 08/23 09 DCD 08/26 Sodium Chloride 250 ML IV 0913 Baclofen 10 MG TID 08/22 2100 DCD 08/26 PO 1427 Bisacodyl 10 MG DAILY NEEDED PRN 08/26 1130 DCD NH Budesonide/ 2 PUF BID 08/22 2100 DCD 08/26 Formoterol Fumarate INH 0913 Ceftriaxone Sodium 1,000 MG DAILY 08/23 09 DCD 08/26 IV 0913 Docusate Sodium 100 MG DAILY 08/26 1126 DCD 08/26 PO 1427 Enoxaparin Sodium 40 MG DAILY 08/22 1838 DCD 08/26 SC 0910 Gabapentin 600 MG 0800,1200 08/23 0800 DCD 08/26 PO 1238 Gabapentin 300 MG 2100 08/22 2100 DCD 08/25 PO 2126 Guaifenesin 600 MG Q12 08/22 2100 DCD 08/26 PO 0911 Insulin Aspart 0 TIDAC 08/25 1200 DCD 08/26 SC 1647 Insulin Aspart 0 AT BEDTIME 08/23 2100 DCD 08/23 SC 2052 Insulin Detemir 20 UNITS BID 08/26 2100 DCD SC Insulin Detemir 34 UNITS DAILY 08/22 2200 DC 08/26 SC 0911 Lisinopril 10 MG DAILY 08/23 0900 DCD 08/26 PO 0914 Metoprolol Succinate 12.5 MG DAILY 08/23 0900 DCD 08/26 PO 0915 Polyethylene Glycol 17 GM DAILY 08/26 1126 DCD PO Senna/Docusate Sodium 2 TAB DAILY 08/26 1125 DCD PO Assessment/Plan Assessment: Mr. Alfred is a pleasant 81 year old male with a PMH of diabetes, complicated by neuropathy, HTN and COPD on 2.5 L of home oxygen at night and 2.5 -3 L oxygen during the day,who presents to the hospital with complaints of productive cough x1 week and weakness. #Productive cough and fatigue In light of the patient's white count, chest x-ray findings and clinical picture, are concerning for CAP -Ceftriaxone and azithromycin. today is 5th day antibiotics, need 7 today of cephalosporin and 5 macrolide. -TRC nebs -Mucinex -Oxygen supplementation -No wheezing does not appear to be in COPD exacerbation. We'll hold off steroids at this point. #Near Fall and deconditioning -Patient needs to be evaluated by PT for safe discharge planning. Patient has not been walked by nurse's and is being deemed a fall risk. PT was ordered and are suggesting STR. #Diabetes- high sugars overnight. hbA1c 8.5. referral to endocrinology. #Pyuria no urinary symptoms likely asymptomatic bacteriuria white count is coming from the community-acquired pneumonia #Chronic medical problems including hypertension, diabetes with neuropathy We will continue the patient's home medications as ordered. Hold antihypertensive medications tonight as his blood pressure is slightly soft. Full code/Consistent carb 2 diet Problem List: 1. Pneumonia 2. Diabetes Pain Ratin Pain Location: heels and back Pain Goal: Pain 4 or less Pain Plan: na Tomorrow's Labs & Rationales: milena Hoffman MD,Emiliana 08/26/17 1450: Attending MD Review Statement Attending Statement Attending MD Statement: examined this patient, discuss w/resident/PA/INDUSTRIAL CAFETERIA MANAGER, agreed w/resident/PA/INDUSTRIAL CAFETERIA MANAGER, reviewed EMR data (avail), discussed with nursing, discussed with case mgmt, amended to note Attending Assessment/Plan: Patient seen and examined. No issues overnight reported by nursing staff. Remains afebrile and hemodynamically stable. Resting comfortably and not in any acute distress. Reports feeling better compared to presentation. Maintaining saturation on his baseline oxygen requirement. Adequate entry bilaterally no mildly reduced in the right lung base. No added sounds. He is medically stable to be discharged today. Recommendations: -Blood glucose levels have been in the 300s during his hospital stay. His hemoglobin A1c of greater than 8 suggest that his glucose levels have been poorly controlled on his current regimen at home. Recommend increasing his insulin to 20 units twice a day. Continue sliding-scale coverage. Recommend close monitoring of his glucose levels at the half-way facility. -Complete antibiotic course with cefuroxime. -Due to his deconditioning he will be discharged to half-way facility for short-term rehabilitation before being transitioned home.
[2017-08-26] MEDS ORDERED: CEFUROXIME500 MG PO ×2 (07:31→08:41)
--- NOTE | 2017-08-26 08:28 | PN- Student ---
Subjective Subjective: Patient is a pleasant 81 yo male with PMHx of insulin dependent DM comblicated by neuropathy, COPD, bladder cancer and HTN who is being currently being treated for CAP. He says he is feeling better and is sleeping well, and still has a productive cough but notes some improvement. He denies any chest pain but says he has some pain on the bottom of his feet. He noted that he still hasn't stood since being here though he would like to, and said he is awaiting a consult this afternoon with his son-in-law, Lucio, to see what his discharge plans will be. Objective Objective: Vital Signs Date Time Temp Pulse Resp B/P B/P Pulse O2 O2 Flow FiO2 Mean Ox Delivery Rate 08/26 0621 98.5 76 20 132/48 97 08/26 0000 94 Nasal 2.5L Cannula 08/25 2200 98.1 78 20 129/50 96 Nasal 2.5L Cannula 08/25 1847 99 Nasal 2.5L Cannula 08/25 1600 96 Nasal 2.5L Cannula 08/25 1458 97.8 76 18 114/48 98 Nasal Cannula 08/25 1455 97 Nasal 2.5L Cannula 08/25 0835 136/52 06 0835 136/52 Blood glucose (9pm 08/25): 208 mg/dL Physical Exam: General: In no apparent distress Skin: Well-healing stage 1 ulcer on bottom of R heel Cardiac: Soft S1,S2, no MMG appreciated Pulmonary: thorax symmetric, no use of accessory muscles, LLL crackles Neuro: AOx4 Intake & Output 08/26 1600 08/26 0800 08/26 0000 Intake Total 120 Output Total 150 400 Balance -30 -400 Intake, Oral 120 Output, Urine 150 400 Current Medications Sig/Adolfo Start time Last Medication Dose Route Stop Time Status Admin Acetaminophen 325 MG Q6P PRN 08/22 2044 AC PO Albuterol Sulfate 3 ML Q4P PRN 08/24 1845 AC INH Azithromycin 500 MG DAILY 08/23 899 AC 08/25 Sodium Chloride 250 ML IV 0834 Baclofen 10 MG TID 08/22 2099 AC 08/25 PO 212 Budesonide/ 2 PUF BID 08/22 2099 AC 08/25 Formoterol Fumarate INH 2125 Ceftriaxone Sodium 1,000 MG DAILY 08/23 899 AC 08/25 IV 0834 Enoxaparin Sodium 40 MG DAILY 08/22 1838 AC 08/25 SC 0834 Gabapentin 600 MG 0800,1200 08/23 0800 AC 08/25 PO 1202 Gabapentin 300 MG 2100 08/22 2100 AC 08/25 PO 2126 Guaifenesin 600 MG Q12 08/22 2100 AC 08/25 PO 2126 Insulin Aspart 0 TIDAC 08/25 1200 AC 08/25 SC 1652 Insulin Aspart 0 AT BEDTIME 08/23 2099 AC 08/23 SC 205 Insulin Aspart 0 TIDAC 08/22 2146 DC 08/24 SC 1702 Insulin Detemir 34 UNITS DAILY 08/22 2200 AC 08/25 SC 0849 Lisinopril 10 MG DAILY 08/23 0900 AC 08/25 PO 0835 Metoprolol Succinate 12.5 MG DAILY 08/23 0900 AC 08/25 PO 0835 Orders for sputum and blood cultures were cancelled. Assessment/Plan Assessment: Patient is 81 yo male with DM, COPD, bladdder cancer and HTN being treated empirically for CAP who shows signs of lung improvement, though his BG remains elevated. Plan: Continue ceftriaxone and azythromycin, monitor BG levels. PT has referred the patient to short-term rehab to aid in ambulation.
--- NOTE | 2017-08-26 10:57 | Discharge Summary ---
See Addendum Visit Information Visit Dates Admission Date: 08/22/17 Discharge Date: 08/26/17 Hospital Course Course Attending Physician: Emiliana Hoffman MD Primary Care Physician: Peter Husain MD Hospital Course: 81 year old man with past medical history of insulin-dependent diabetes mellitus , diabetic neuropathy, hypertension, COPD on 2.5L O2, seen for evaluation of weakness. He reportedly fell back into his chair after attempting to stand for which he family called EMS. He reports a productive cough for the week prior and otherwise denied any fever, chills, nausea, vomiting, diarrhea, constipation, or pain. At time of admission he felt well and had no complaints. ED Course -Vitals: TMAX 100.1, HR 95, RR 20, SBP 97-108, O2 98% on 3.0L O2 via NC -CBC: WBC 15.1, Hgb 10.8, Hct 31.3, Plt 323 -BMP: Na 138, K 4.6, Cl 97, CO2 32, BUN 25, Cr 1.1 -LFT: within normal limits -Misc: BNP 1260, Albumin 3.4, Troponin I 0.01, TSH 2.930, -CXR: Mild streaky nonspecific bibasilar opacification -EKG: Sinus tachycardia with 1st AVB, P-mitrale, poor r-wave progression -ED Interventions: * Blood cultures X2, Urine Culture * Ceftriaxone 1 g IV ONCE * Azithromycin 500 mg IV ONCE Problem List on Admission -Productive cough with fatigue, probable community acquired pneumonia -Sepsis -Hypertension -COPD, on 2.5 L home oxygen -Insulin-dependent diabetes mellitus -Diabetic neuropathy Hospital Course Patient was admitted to the general medicine floor. He was continued on his baseline dose of supplemental oxygen with stable respiratory status. He was continued on Ceftriaxone and Azithromycin for a total of 5 days of antibiotics. His sepsis was treated with intravenous fluid resuscitation. Cultures including blood x2, urine, and urinary antigens for legionella and strep remained no growth to date or negative at time of discharge. Patients blood sugars remained elevated during the hospital stay on his home regimen of 34 units of long acting insulin day and sliding scale premeal insulin. Insulin was changed to 20 units twice daily on discharge. Physical therapy evaluated the patient and recommended discharge to a [facility] facility for ongoing rehabillitation. Allergies: Coded Allergies: morphine (UNKNOWN 11/02/16) Significant Procedures: SERVICE DATE: 08/22/17659 EXAM TYPE: RAD - XRY-PORTABLE CHEST XRAY Mild streaky nonspecific bibasilar opacification. Disposition Summary Disposition Principal Diagnosis: Community Acquired pneumonia Additional Diagnosis: Sepsis Discharge Disposition: SNF Discharge Instructions General Discharge Information Code Status: Full Code Patient's Diet: Diabetic diet Patient's Activity: Per PT assessment Follow-Up Instructions/Appts: Your dose of insulin has changed. Please start taking 20 units twice daily. Follow up with your doctor who manages your diabetes after discharge. Continue all your previous medications as directed. Medications at Discharge Discharge Medications: Stop taking the following medications: Insulin-Lantus (Lantus) 100 UNIT/ML VIAL Inject into fatty tissue DAILY Qty = 40 Continue taking these medications: Insulin Lispro (Humalog) 100 UNIT/ML VIAL 2 Units Inject into fatty tissue THREE TIMES DAILY Qty = 20 Comments: NOT GIVEN IN HOSPITAL. Ramipril (Altace) 10 MG CAPSULE 1 Capsule ORAL DAILY Comments: NOT GIVEN IN HOSPITAL Metoprolol Succinate (Metoprolol Succinate) 25 MG TAB 0.5 Tablet ORAL DAILY Comments: Last Taken:08/26/17 Time:09:15 AM Gabapentin (Gabapentin) 600 MG TABLET 1 Tablet ORAL 0800,1200 Qty = 180 Comments: Last Taken:08/26/17 Time:12:38 Gabapentin (Gabapentin) 600 MG TABLET 0.5 Tablet ORAL 2100 Comments: Last Taken:08/25/17 Time:9:30PM Baclofen (Baclofen) 10 MG TABLET 1 Tablet ORAL THREE TIMES DAILY Qty = 270 Comments: Last Taken:Aug Time:2:27 PM Fluticasone/Salmeterol (Advair 250-50 Diskus) 250 MCG-50 MCG/DOSE BLST.W.DEV 1 Puff Inhale through mouth TWICE DAILY Qty = 180 Comments: NOT GIVEN IN HOSPITAL Umeclidinium [place] (Incruse Ellipta) 62.5 MCG/ACTUATION BLST.W.DEV 1 PUFF ORAL Every night Comments: NOT GIVEN IN HOSPITAL Start taking the following new medications: Cefuroxime Axetil (Cefuroxime) 500 MG TABLET 1 Tablet ORAL TWICE DAILY Qty = 5 No Refills Comments: NOT GIVEN IN HOSPITAL Insulin Glargine,Hum.rec.anlog (Lantus Solostar) 100 UNIT/ML (3 ML) INSULN.PEN 20 Unit Inject into fatty tissue TWICE DAILY Qty = 15 No Refills Comments: NOT GIVEN IN HOSPITAL Copies To: Rodrigue SWIFT,Peter Page Attending MD Review Statement Documenting Attending: Emiliana Hoffman MD Other Findings: Medically stable to be discharged today.
[2017-08-26] MEDS ORDERED: LANTUS SOL100 UNIT/1 SC (10:58)
[2017-08-26 17:30] VITALS: BP 132/54
== END 2017-08-26 19:11 | DRG 194 ==
LOC: ERH 14:46 → 2NB 17:49 → ERHI 17:49 → ENRESERV 18:36 → ENTRNSPT 19:28 → EDTRNSPTSTS 19:33 → 2NB 19:39 → CMPTRNSPT 19:52 → 2NB 08-26 19:11
PROVIDERS: Internal Medicine Cardiovascular Disease; Physician Assistant Medical
DX: J18.9 Pneumonia, unspecified organism (principal); J96.11 Chronic respiratory failure with hypoxia; Z99.81 Dependence on supplemental oxygen; I10 Essential (primary) hypertension; E11.40 Type 2 diabetes mellitus with diabetic neuropathy, unspecified; Z79.4 Long term (current) use of insulin; J44.9 Chronic obstructive pulmonary disease, unspecified; R82.71 Bacteriuria; Z87.891 Personal history of nicotine dependence; Z85.51 Personal history of malignant neoplasm of bladder
CPT/HCPCS: 2NBSP; 36592; 71045; 81001; 82436; 87040; 87070; 87086; 87449; 87450; 93005; 93010; 96361; 96374; 96375; 97116-GO; 97161-GP; 97530-GO; J0131; J0456; J0696; J1650; J3490; J7040

== ENCOUNTER 2017-11-02 12:32 | Emergency (ER) | payer OTHER ==
[~2017-11-02] VITALS: Ht 177.8 cm; Wt 83.9 kg
[~2017-11-02 12:32] MED LIST changes: +ADVAIR 250-501 EACH INH; +ALTACE10 M2 PO; +AZITHROMYCIN500 M3 PO; +BACLOFEN10 M1 PO; +CEFUROXIME500 MG PO; +GABAPENTIN600 M1 PO; +INCRUSE ELLI62.5 MCG PO; +LANTUS SOL100 UNIT/1 SC; +LANTUS100 UNIT/1 SC; +METOPROLOL SUCC25 M1 PO
--- NOTE | 2017-11-02 12:45 | ED GENERAL ADULT ---
History of Present Illness General Chief Complaint: General Adult Stated Complaint: LOW BLOOD SUGAR Source: patient, old records, EMS Exam Limitations: no limitations Vital Signs & Intake/Output Vital Signs & Intake/Output Vital Signs Date Time Temp Pulse Resp B/P B/P Pulse O2 O2 Flow FiO2 Mean Ox Delivery Rate 11/02 1907 80 18 144/70 95 Room Air 11/02 1444 64 16 141/63 100 Nasal 2.0L Cannula 11/02 1315 94 Room Air 11/02 1245 97.5 62 20 126/60 94 Room Air Allergies Coded Allergies: morphine (UNKNOWN 11/02/16) Reconcile Medications Baclofen 10 MG TABLET 1 TAB PO TID PAIN (Reported) Cefuroxime Axetil (Cefuroxime) 500 MG TABLET 1 TAB PO BID PNA Fluticasone/Salmeterol (Advair 250-50 Diskus) 250 MCG-50 MCG/DOSE BLST.W.DEV 1 PUF INH BID BREATHING PROBLEMS (Reported) Gabapentin 600 MG TABLET 1 TAB PO 0800,1200 NEUROPATHY (Reported) Gabapentin 600 MG TABLET 0.5 TAB PO 2100 NEUROPATHY (Reported) Insulin Glargine,Hum.rec.anlog (Lantus Solostar) 100 UNIT/ML (3 ML) INSULN.PEN 20 UNIT SC BID IDDM Insulin Lispro (Humalog) 100 UNIT/ML VIAL 2 UNITS SC TID DIABETES (Reported) Metoprolol Succinate 25 MG TAB 0.5 TAB PO DAILY HEART (Reported) Ramipril (Altace) 10 MG CAPSULE 1 CAP PO DAILY HTN (Reported) Umeclidinium [place] (Incruse Ellipta) 62.5 MCG/ACTUATION BLST.W.DEV 1 PUFF PO QPM BREATHING PROBLEMS (Reported) Triage Nurses Notes Reviewed? yes HPI: Patient brought in by ambulance after being found hypoglycemic. Patient took his Lantus this morning and is unsure if he ate his full breakfast or not. Patient states he's been having difficulty eating ever since his upper plate rope and he no longer has any teeth on the upper part. He denies any chest pain or shortness of breath. Patient received glucose by EMS and is currently asymptomatic. Patient has no current complaints. Past History Travel History Traveled to [place] past 21 day No Medical History Any Pertinent Medical History? 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 No Review of Systems Review of Systems Constitutional: Reports: no symptoms. EENTM: Reports: no symptoms. Respiratory: Reports: no symptoms. Cardiovascular: Reports: no symptoms. GI: Reports: no symptoms. Genitourinary: Reports: no symptoms. Musculoskeletal: Reports: no symptoms. Skin: Reports: no symptoms. Neurological/Psychological: Reports: no symptoms. Hematologic/Endocrine: Reports: no symptoms. Immunologic/Allergic: Reports: no symptoms. All Other Systems: Reviewed and Negative Physical Exam Physical Exam General Appearance: well developed/nourished, alert, awake, mild distress Head: atraumatic, normal appearance Eyes: Bilateral: PERRL, EOMI. Ears, Nose, Throat: normal pharynx, normal ENT inspection Neck: normal inspection, supple, full range of motion Respiratory: normal breath sounds, chest non-tender, no respiratory distress, lungs clear Cardiovascular: regular rate/rhythm, normal peripheral pulses Gastrointestinal: normal bowel sounds, soft, non-tender, no organomegaly Back: normal inspection, normal range of motion Extremities: normal inspection, normal capillary refill, normal range of motion, no edema Neurologic/Psych: no motor/sensory deficits, awake, alert, oriented x 3, normal gait, normal mood/affect Skin: intact, normal color, warm/dry Lymphatic: no anterior cervical kirsten Core Measures ACS in differential dx? No CVA/TIA Diagnosis: No Sepsis Present: No Sepsis Focused Exam Completed? No Progress Differential Diagnoses I considered the following diagnoses in my evaluation of the patient: [ Hypoglycemia, UTI, pneumonia, electrolyte abnormality] Plan of Care: Orders Procedure Date/time Status Regular Diet 11/02 D Active URINALYSIS 11/02 1307 Complete TROPONIN LEVEL 11/02 1244 Complete COMPREHENSIVE METABOLIC PANEL 11/02 1244 Complete CBC WITHOUT DIFFERENTIAL 11/02 1244 Complete EKG 11/02 1244 Active Current Medications Sig/Adolfo Start time Last Medication Dose Stop Time Status Admin Dextrose/Water 1,000 ML Q8H 11/02 1500 AC 11/02 (D5W 1000) 1451 Laboratory Tests 11/02/17 1716: Urine Color YEL, Urine Clarity CLEAR, Urine pH 6.0, Ur Specific [place] >= 1.030 , Urine Protein NEG, Urine Ketones NEG, Urine Nitrite NEG, Urine Bilirubin NEG, Urine Urobilinogen 0.2, Ur Leukocyte Esterase NEG, Ur Microscopic SEDIMENT EXAMINED, Urine RBC 1-3, Urine WBC RARE, Ur Epithelial Cells FEW, Urine Crystals 1+ HIPPURATE, Urine Hemoglobin TRACE-INTACT H, Urine Glucose NEG 11/02/17 1300: Anion Gap 7, Estimated GFR > 60, BUN/Creatinine Ratio 41.4 H, Glucose 114 H, Calcium 9.2, Total Bilirubin 0.3, AST 33, ALT 27, Alkaline Phosphatase 67, Troponin I < 0.01, Total Protein 7.0, Albumin 3.9, Globulin 3.1, Albumin/ Globulin Ratio 1.3, CBC w Diff NO MAN DIFF REQ, RBC 3.72 L, MCV 90.7, MCH 30.6, MCHC 33.8, RDW 14.1, MPV 9.0, Gran % 88.6 H, Lymphocytes % 7.3 L, Monocytes % 3.7, Eosinophils % 0.2, Basophils % 0.2, Absolute Granulocytes 8.7 H, Absolute Lymphocytes 0.7 L, Absolute Monocytes 0.4, Absolute Eosinophils 0, Absolute Basophils 0 Initial ED EKG: NSR, nonspecific ST T wave chg Prior EKG: unchanged Departure Departure Disposition: HOME OR SELF CARE Condition: Stable Clinical Impression Primary Impression: Hypoglycemia Referrals: Peter Husain MD (PCP/Family) Additional Instructions: reutnr if symptoms worsen or for any concerns Departure Forms: Customer Survey General Discharge Information Critical Care Note Critical Care Note Critical Care Time: non-applicable
[2017-11-02 13:07] LABS: ABSOLUTE BASOPHIL COUNT 0 /CUMM (0.0-0.2); ABSOLUTE EOSINOPHIL COUNT 0 /CUMM (0.0-0.7); ABSOLUTE GRANULOCYTE CT 8.7 /CUMM (1.4-6.5); ABSOLUTE LYMPH COUNT 0.7 /CUMM (1.2-3.4); ABSOLUTE MONOCYTE COUNT 0.4 /CUMM (0.10-0.60); BASOPHIL % 0.2 % (0.0-2.0); EOSINOPHIL % 0.2 % (0-5); GRANULOCYTE % 88.6 % (42.2-75.2); HEMATOCRIT 33.8 % (42-52); MEAN CORPUSCULAR HGB 30.6 PG (27.0-31.0); MEAN CORPUSCULAR HGB CONC 33.8 G/DL (33.0-37.0); MEAN CORPUSCULAR VOLUME 90.7 FL (80.0-94.0); PLATELET COUNT 265 /CUMM (130-400); RBC DISTRIBUTION WIDTH 14.1 % (11.5-14.5); RED BLOOD CELL CT 3.72 /CUMM (4.70-6.10); WHITE BLOOD CELL COUNT 9.8 /CUMM (4.8-10.8)
--- NOTE | 2017-11-02 15:04 | RADIOLOGY REPORT ---
EXAMINATION: XR CHEST CLINICAL INFORMATION: Hypoglycemia. Possible pneumonia. COMPARISON: Chest radiographs 08/22/2017, 11/02/2016 TECHNIQUE: 2 views of the chest were obtained. FINDINGS: Frontal view is obtained with slight lordotic patient positioning. There is subsegmental atelectasis medial right middle lobe, better appreciated on lateral view. The remainder of the lungs are clear. The vascularity is normal. The costophrenic sulci are well-defined. The heart is normal in size. The hilar and mediastinal contours are normal. Bony structures show multilevel degenerative changes spine. IMPRESSION: Subsegmental atelectasis right middle lobe.
[2017-11-02 19:07] VITALS: BP 144/70
== END 2017-11-02 19:45 ==
LOC: ERH 12:32
PROVIDERS: Emergency Medicine
DX: E11.649 Type 2 diabetes mellitus with hypoglycemia without coma (principal)
CPT/HCPCS: 71046; 81001; 93005; 93010; 96374; J7060